=== PATIENT | female | born 2000 | race Two or more races ===

== ENCOUNTER 2020-08-01 14:31 | Emergency (ER) | payer MEDICAID ==
[~2020-08-01] VITALS: Ht 157.5 cm; Wt 68.2 kg
[2020-08-01 14:57] VITALS: BP 109/73
[2020-08-01 16:55] LABS: MONOTEST NEGATIVE (Neg)
== END 2020-08-01 17:20 | disposition home or self-care (01) ==
LOC: ER 14:31
DX: R59.0 Localized enlarged lymph nodes (principal); J02.8 Acute pharyngitis due to other specified organisms
CPT/HCPCS: 36415; 86308; 87081; 87880; 99283

== ENCOUNTER 2020-12-23 14:54 | Emergency (ER) | payer MEDICAID ==
[~2020-12-23] VITALS: Ht 157.5 cm; Wt 68.4 kg
[2020-12-23 15:04] VITALS: BP 142/69
== END 2020-12-23 16:23 | disposition home or self-care (01) ==
LOC: ER 14:54
DX: S00.03XA Contusion of scalp, initial encounter (principal); V89.2XXA Person injured in unspecified motor-vehicle accident, traffic, initial encounter; Y93.89 Activity, other specified; Y92.89 Other specified places as the place of occurrence of the external cause; Y99.8 Other external cause status
CPT/HCPCS: 99282